=== PATIENT | female | born 1960 | race Caucasian/White ===

== ENCOUNTER → 2024-07-07 07:25 | Outpatient (REF) | payer BC, SELFPAY | LOC: CLAB 07:25 | PROVIDERS: Pathology Anatomic Pathology & Clinical Pathology; ATTENDING PHYSICIAN Dermatology | DX: D49.2 Neoplasm of unspecified behavior of bone, soft tissue, and skin (principal) | CPT/HCPCS: 88305 ==

== ENCOUNTER → 2024-12-14 08:29 | Outpatient (REF) | payer BC, SELFPAY ==
[2024-12-14 09:05] LABS: Hematocrit 40.9 % (37.0-47.0); Hemoglobin 13.8 g/dL (12.0-16.0); Mean Corp Hgb Conc. 33.7 g/dL (33.0-37.0); Mean Corpuscular Volume 91.9 fL (81.0-99.0); Nucleated Red Blood Cells % 0 %; Platelet Count 261 10^3/uL (130-400); Red Cell Dist. Width 12.6 % (11.5-14.5)
[2024-12-14 10:24] LABS: ALT (SGPT) 18 U/L (0-35); AST (SGOT) 24 U/L (14-36); Albumin 4.7 g/dl (3.5-5.0); Alkaline Phosphatase 55 U/L (38-126); Blood Urea Nitrogen 19 mg/dl (7-17); Calcium 9.6 mg/dl (8.4-10.2); Carbon Dioxide 29 mmol/L (22-30); Chloride 105 mmol/L (98-107); Glucose 100 mg/dl (70-99); HDL Cholesterol 53 mg/dl; LDL Cholesterol, Calculated 189 mg/dl; Potassium 4.3 mmol/L (3.5-5.1); Sodium 140 mmol/L (135-145); Total Protein 7.6 g/dl (6.3-8.2); Very Low Density Lipoprotein 37 mg/dl (0-30); eGFR > 60.00
== END ==
LOC: REG 08:29
PROVIDERS: ATTENDING PHYSICIAN Family Medicine
DX: Z00.00 Encounter for general adult medical examination without abnormal findings (principal)
CPT/HCPCS: 36415; 80053; 80061; 84443; 85025

== ENCOUNTER → 2025-02-13 07:35 | Outpatient (REF) | payer BC, SELFPAY | LOC: HWRAD 07:35 | PROVIDERS: ATTENDING PHYSICIAN Family Medicine | DX: Z12.31 Encounter for screening mammogram for malignant neoplasm of breast (principal); Z78.0 Asymptomatic menopausal state | CPT/HCPCS: 77063; 77067; 77080 ==